=== PATIENT | female | born 1960 | race Caucasian/White ===

== ENCOUNTER 2023-07-20 15:45 | Emergency (ER) | payer MEDICARE, OTHER, SELFPAY ==
[2023-07-20 15:47] VITALS: BP 166/98; PULSE 86; RESP 22; TEMP 37.1; O2SAT 100; BMI 25.8
--- NOTE | 2023-07-20 15:58 | CT_ITS ---
The [address] [address] Patient Name: PAUL COOPER MRN: [id number] date: 1960 Sex: F Assigned Patient Location: ER Current Patient Location: ER Accession/Order Number: [id number] Exam Date: 07/20/2023 16:25 Report Date: 07/20/2023 16:58 At the request of: GÓMEZ JUSTIN Procedure: CT head/brain wo con EXAM: CT head/brain wo con HISTORY: fall COMPARISON: None. TECHNIQUE: Axial CT images were obtained of the head without intravenous contrast. Multiplanar reconstructions were performed. FINDINGS: No acute intracranial hemorrhage. No acute loss of lee/white differentiation. The ventricles and sulci are normal in appearance. The osseous structures are unremarkable. There is a large subgaleal hematoma at the apex. The paranasal sinuses and mastoid air cells are clear. CT/CT head/brain wo con IMPRESSION: 1. No acute intracranial abnormality. 2. Large apical subgaleal scalp hematoma. Electronically authenticated by: EDGARD CHEN Date: 07/20/2023 16:58
--- NOTE | 2023-07-20 15:58 | XR_ITS ---
The [address] [address] Patient Name: PAUL COOPER MRN: [id number] date: 1960 Sex: F Assigned Patient Location: ED.MAIN Current Patient Location: ER Accession/Order Number: [id number] Exam Date: 07/20/2023 16:00 Report Date: 07/20/2023 16:27 At the request of: GÓMEZ JUSTIN Procedure: XR chest 1V EXAM: XR chest 1V HISTORY: fall, pain COMPARISON: None. TECHNIQUE: Single view of the chest FINDINGS: Heart size normal. No focal consolidation, pleural effusion, pulmonary congestion or pneumothorax. Postcystectomy clips. XR/XR chest 1V IMPRESSION: No acute findings. Electronically authenticated by: JASBIR ARNOLD Date: 07/20/2023 16:27
--- NOTE | 2023-07-20 15:58 | XR_ITS ---
The [address] [address] Patient Name: PAUL COOPER MRN: [id number] date: 1960 Sex: F Assigned Patient Location: ED.MAIN Current Patient Location: ER Accession/Order Number: [id number] Exam Date: 07/20/2023 16:00 Report Date: 07/20/2023 16:29 At the request of: GÓMEZ JUSTIN Procedure: XR foot RT min 3V EXAM: XR foot RT min 3V HISTORY: hallux pain COMPARISON: None. TECHNIQUE: 3 views of the left foot are performed. FINDINGS: There is no acute fracture. The bony structures are intact. The soft tissues are unremarkable. There is an enthesophyte at the insertion of the Achilles tendon. XR/XR foot RT min 3V IMPRESSION: No acute bony abnormality. Electronically authenticated by: JUNI DAO Date: 07/20/2023 16:29
--- NOTE | 2023-07-20 15:59 | CT_ITS ---
The [address] [address] Patient Name: PAUL COOPER MRN: [id number] date: 1960 Sex: F Assigned Patient Location: ER Current Patient Location: ER Accession/Order Number: [id number] Exam Date: 07/20/2023 16:25 Report Date: 07/20/2023 17:02 At the request of: GÓMEZ JUSTIN Procedure: CT cervical spine wo con EXAM: CT cervical spine wo con HISTORY: fall COMPARISON: None. TECHNIQUE: Axial CT images were obtained of the lumbar spine without intravenous contrast. Multiplanar reconstructions were performed. FINDINGS: No acute fracture or malalignment. Mild multilevel degenerative changes are present in the visualized spine greatest at C5-C6. Unremarkable appearance of the paraspinal soft tissues. CT/CT cervical spine wo con IMPRESSION: 1. No acute abnormality. Electronically authenticated by: EDGARD CHEN Date: 07/20/2023 17:02
--- NOTE | 2023-07-20 16:00 | ED_ITS ---
HPI - Fall General Chief Complaint: Fall Stated Complaint: head injury/ fall Time Seen by Provider: 07/20/23 15:46 Source: patient Mode of arrival: Wheelchair Limitations: no limitations History of Present Illness HPI Narrative: 63-year-old female presents for an injury to her head. She was about 6 feet up and she fell and landed on sidewalk. She sustained a laceration to the left posterior lateral scalp area and she has pain in her head and her neck and across her chest. Her left great toe hurts as well. No LOC or vomiting. This happened just before coming into the emergency department. Her brought h er here. C-collar was placed upon arrival by the nursing staff. Related Data Home Medications Medication Instructions Recorded Confirmed No Known Home Medications 07/20/23 07/20/23 Allergies Allergy/AdvReac Type Severity Reaction Status Date / Time No Known Drug Allergies Allergy Verified 07/20/23 15:56 Review of Systems ROS Narrative A ten point review of systems is negative except as noted above. Exam Narrative Exam Narrative: Nurses note and vital signs reviewed and patient is not hypoxic. General: The patient is laying on the examination cart with a c-collar in place. Skin: Warm, dry, no pallor noted. There is no rash noted. Head: Normocephalic, blood noted on the scalp. she has a stellate total length 5 cm laceration with large hematoma on the scalp just inferior and left lateral to the vertex. Eye: Normal conjunctiva, no drainage, EOMI. PERRL Ears, Nose, Mouth, and Throat: oral mucosa is moist. Nares patent. Cardiovascular: Regular Rate and Rhythm Respiratory: Patient is in no distress, no accessory muscle use, lungs are clear to auscultation, no wheezing, rales or rhonchi Back: no deformity GI: nontender Musculoskeletal: left hallux has small bruise of the base but no laceration. The rest of her lower extremities shows no tenderness though she was noted to have an abrasion on her right anterior knee. Palpation of both arms including the shoulders elbows and wrists shows no tenderness. Neurological: A&O x4, normal speech Psychiatric: Cooperative Constitutional Vital Signs, click to edit/add: Last Vital Signs Temp 98.7 F 07/20/23 15:47 Pulse 86 07/20/23 15:47 Resp 22 07/20/23 15:47 BP 166/98 H 07/20/23 15:47 Pulse Ox 100 07/20/23 15:47 O2 Del Method Room Air 07/20/23 15:47 Course Vital Signs Vital signs: Vital Signs Temperature 98.7 F 07/20/23 15:47 Pulse Rate 86 07/20/23 15:47 Respiratory Rate 22 07/20/23 15:47 Blood Pressure 166/98 H 07/20/23 15:47 Pulse Oximetry 100 07/20/23 15:47 Oxygen Delivery Method Room Air 07/20/23 15:47 Temperature 98.7 F 07/20/23 15:47 Pulse Rate 86 07/20/23 15:47 Respiratory Rate 22 07/20/23 15:47 Blood Pressure 166/98 H 07/20/23 15:47 Pulse Oximetry 100 07/20/23 15:47 Oxygen Delivery Method Room Air 07/20/23 15:47 MDM - Fall MDM Narrative Medical decision making narrative: CAT scans and x-rays are all negative and she'll be discharged home. Sutures to be removed in ten days. Tetanus status is up-to-date according to the patient. Differential Diagnosis Differential diagnosis: Likely other (subdural hematoma, epidural hematoma, subarachnoid hemorrhage, cervical spine fracture, laceration, hematoma) Imaging Data CT brain, CT C-spine, right foot, chest x-ray: Radiologist's impression: all radiographs per radiologist showed no acute findings Discharge Plan Discharge Chief Complaint: Fall Clinical Impression: Laceration of scalp Patient Disposition: Home, Self-Care Time of Disposition Decision: 18:48 Condition: Good Mode of Transportation: Private Vehicle Prescriptions / Home Meds: No Action No Known Home Medications Instructions: Laceration (ED) Additional Instructions: sutures to be removed in ten days Stand Alone Forms: Portal Instructions Referrals: Physician,Non-Staff, MD [Primary Care Provider] - 1 week Procedures ED Procedure Instructions Procedures Procedures: the following procedure was performed by mt. Local infiltration was carried out with one percent lidocaine without epinephrine resulting in good skin anesthesia. The area was prepped with Betadine ?3 and draped sterilely. It was explored for foreign bodies none were found. There was significant bleeding, nonpulsatile. Large hematoma also noted. A total of eleven 3-0 Prolene sutures were placed resulting in good skin reapproximation and complete hemostasis. After dressing applied subsequently. No other scalp wound was noted on close examination.
--- NOTE | 2023-07-20 16:32 | PC.NURSE ---
pt head wound bleeding profusely -- pressure bandage applied tightly. controlled. appears to have a laceration to L posterior head and mid posterior head. pt denies pain. only complains of chest pain
[2023-07-20] MEDS: LIDOCAINE HCL 1% 100 MG/10 ML MDV INJ (18:23)
[2023-07-20] MEDS: SODIUM CHLORIDE 0.9% IRRIG SOLUTION 1,000 ML BOTTLE 1000 ML IRR ×2 (18:24)
[2023-07-20] MEDS: ONDANSETRON PF 4 MG/2 ML VIAL IV (18:33)
--- NOTE | 2023-07-20 18:34 | PC.NURSE ---
assisted Dr Kraus with suture placement to head. pt tolerated well other than pt did get nauseous, zofran IV was overrode from pyxis. After, hair/scalp was cleansed with sodium chloride irrigation. remains at bedside. pt denies other needs at this time.
== END 2023-07-20 19:15 | disposition home or self-care (01) ==
PROVIDERS: Emergency Provider Emergency Medicine; Family Provider Family Medicine
DX: S01.01XA Laceration without foreign body of scalp, initial encounter (principal); W17.89XA Other fall from one level to another, initial encounter; S80.211A Abrasion, right knee, initial encounter; M54.2 Cervicalgia
CPT/HCPCS: 12002; 70450; 71045; 72125; 73630; 96374; 99285